=== PATIENT | male | born 1940 | race Caucasian/White ===

== ENCOUNTER 2019-05-20 17:40 | Emergency (ER) | payer MEDICARE ==
[~2019-05-20] VITALS: Ht 165.1 cm; Wt 65.0 kg
--- NOTE | 2019-05-20 18:50 | NUR ---
Pt placed in gown, set up in [facility] and given warm blankets. Call light within reach. Pt denies additional needs at this time, NAD, even and unlabored respirations. Bedside report given to Higinio CARRILLO, pt care transferred at this time.
[2019-05-20 18:53] LABS: BASOPHILS # (AUTO) 0.06 x10^3/uL (0-0.1); BASOPHILS % (AUTO) 1 % (0-1); EOSINOPHILS # (AUTO) 0.16 x10^3/uL (0-0.4); EOSINOPHILS % (AUTO) 2 % (1-7); LYMPHOCYTES # (AUTO) 1.33 x10^3/uL (1-3.4); LYMPHOCYTES % (AUTO) 19 % (22-44); MD NO; MEAN CORPUSCULAR HEMOGLOBIN 30.3 pg (27.5-34.5); MEAN CORPUSCULAR HGB CONC 32.9 g/dL (33.2-36.2); MEAN CORPUSCULAR VOLUME 92.1 fL (81-97); MEAN PLATELET VOLUME 7.3 fL (7.4-10.4); MONOCYTES # (AUTO) 0.57 x10^3/uL (0.2-0.8); MONOCYTES % (AUTO) 8 % (2-9); NEUTROPHILS # (AUTO) 4.74 x10^3/uL (1.8-6.8); NEUTROPHILS % (AUTO) 69 % (42-75); PLATELET COUNT 215 x10^3/uL (130-400); RED BLOOD COUNT 4.74 x10^6/uL (4.38-5.82); RED CELL DISTRIBUTION WIDTH 14.9 % (9.4-14.8)
[2019-05-20 19:05] LABS: ALANINE AMINOTRANSFERASE 17 U/L (12-78); ALBUMIN 3.8 g/dL (3.4-5.0); ANION GAP 5 mmol/L (5-15); CALCIUM 8.8 mg/dL (8.5-10.1); CHLORIDE 106 mmol/L (98-107); CREATININE 1.09 mg/dL (0.7-1.3)
--- NOTE | 2019-05-20 19:06 | NUR ---
Pt report from Isatu fuller. This rn to assume care of pt. Pt aware of need for ua. States unable to provide at this time. Will accomplish post void residual upon void. No other immediate needs. Vss. Call light within reach.
[2019-05-20 19:07] VITALS: BP 152/80
[2019-05-20 19:07] LABS: ALKALINE PHOSPHATASE 51 U/L (45-117); TOTAL PROTEIN 6.4 g/dL (6.4-8.2)
--- NOTE | 2019-05-20 19:27 | NUR ---
Pt residual of 105 ml noted after void. Pt ua sent to lab. To xr.
[2019-05-20 19:40] LABS: CULTURE INDICATED? YES; MICROSCOPIC INDICATED
== END 2019-05-20 20:30 | disposition home or self-care (01) ==
LOC: ED 19:30
DX: R31.0 Gross hematuria (principal); Z85.46 Personal history of malignant neoplasm of prostate
CPT/HCPCS: 36415; 74022; 80053; 81001; 85025; 87086; 99284

== ENCOUNTER → 2019-05-21 | Outpatient (CLI) | payer MEDICARE, OTHER ==
[~2019-05-21] MED LIST: OMNIPAQUE 350 MG/ML, 150 ML BOTTLE ONE
== END | disposition home or self-care (01) ==
LOC: RAD 14:22
PROVIDERS: ATTEND Physician Assistant
DX: K57.30 Diverticulosis of large intestine without perforation or abscess without bleeding (principal); N28.1 Cyst of kidney, acquired; I70.0 Atherosclerosis of aorta; M95.4 Acquired deformity of chest and rib; I51.7 Cardiomegaly; N43.3 Hydrocele, unspecified
CPT/HCPCS: 74178; Q9967